=== PATIENT | female | born 1975 | race Caucasian/White ===

== ENCOUNTER 2019-08-05 00:52 | Emergency (ER) | payer MEDICAID ==
[~2019-08-05] VITALS: Ht 165.1 cm; Wt 49.9 kg
--- NOTE | 2019-08-05 00:53 | NUR ---
Dr. Kaur at bedside to evaluate patient
--- NOTE | 2019-08-05 00:56 | NUR ---
patient brought in by ambulance from home. patient VS: BP 117/77, spo2- 100%, HR 88, RR 16. patient able to reponsd to verbal stimuli. According to EMT report, patient chief complaint of pain to the chest and anxiety due to an upcoming test. patient placed on monitor at bedside at arrival. ER physician, Dr. matos at bedside to evaluate patient. Neuro check completed at bedside.
--- NOTE | 2019-08-05 01:08 | NUR ---
patient verbally consented to waive test to receive medication. patient denies the possibility of being currently .
[2019-08-05] MEDS ORDERED: LORAZEPAM 2 MG/1 ML VIAL ONE (01:11)
[2019-08-05] MEDS ORDERED: LORAZEPAM 2 MG/1 ML VIAL IV ONE (01:15)
[2019-08-05 01:26] LABS: BASOPHILS # (AUTO) 0.1 K/uL (0.0-8.0); EOSINOPHILS # (AUTO) 0.2 K/uL (0.0-0.7); EOSINOPHILS % (AUTO) 3.2 % (0.0-7.0); HEMATOCRIT 34.6 % (31.2-41.9); HEMOGLOBIN 11.7 g/dL (10.9-14.3); LYMPHOCYTES # (AUTO) 2.1 K/uL (20.0-40.0); LYMPHOCYTES % (AUTO) 34.1 % (20.5-51.5); MEAN CORPUSCULAR HEMOGLOBIN 30.7 uug (24.7-32.8); MEAN CORPUSCULAR HGB CONC 34 g/dL (32.3-35.6); MEAN CORPUSCULAR VOLUME 90.8 fL (75.5-95.3); MONOCYTES # (AUTO) 0.6 K/uL (2.0-10.0); MONOCYTES % (AUTO) 10.3 % (0.0-11.0); NEUTROPHILS # (AUTO) 3.2 K/uL (1.8-8.9); NEUTROPHILS % (AUTO) 51.4 % (38.5-71.5); PLATELET COUNT (AUTO) 203 K/uL (179-408); RED BLOOD CELL COUNT(AUTO) 3.81 MIL/uL (3.63-4.92); WHITE BLOOD COUNT (AUTO) 6.2 K/uL (3.8-11.8)
[2019-08-05 01:40] LABS: POTASSIUM 3.5 mmol/L (3.5-5.1)
[2019-08-05 01:46] LABS: BILIRUBIN,DIRECT 0.1 mg/dL (0.0-0.2); BILIRUBIN,TOTAL 0.3 mg/dL (0.2-1.0); TOTAL PROTEIN, SERUM 6.8 g/dL (6.4-8.2)
--- NOTE | 2019-08-05 02:00 | NUR ---
x-ray wind tunnel technician at bedside.
[2019-08-05 02:42] LABS: *URINE HCG, QUAL NEGATIVE (NEGATIVE)
--- NOTE | 2019-08-05 05:14 | NUR ---
Patient discharged to home in stable conditon. Written and verbal after care instructions given. Patient verbalizes understanding of instructions. patient alert and oriente x4. Patient self ambulatory with steady gait. Exit care and personal belongings taken with patient at discharge.
[2019-08-05 05:15] VITALS: BP 102/81
== END 2019-08-05 05:16 | disposition home or self-care (01) ==
LOC: ER 00:55
DX: R07.9 Chest pain, unspecified (principal); R06.4 Hyperventilation
CPT/HCPCS: 36415; 71045; 80048; 80076; 84439; 84443; 84484 ×2; 84703; 85025; 85379; 93005; 96374; 99284; J2060; 70030-TC; A4663